=== PATIENT | male | born 1985 | race African-American/Black ===

== ENCOUNTER 2019-07-22 21:49 | Inpatient (IN) | payer BC ==
[~2019-07-22] VITALS: Ht 177.8 cm; Wt 107.5 kg
[2019-07-22 22:00] VITALS: Ht 177.8 cm; Wt 107.5 kg
--- NOTE | 2019-07-22 22:04 | NUR ---
PT C/O SOB, CHEST PAIN, WEAKNESS, DIZZINESS [id number] INLAYER SILVER. PER PT, HE WAS JUST WATCHING TV WHEN HE STARTED TO FEEL 10/10 HEAVY PRESSURE ON HIS CHEST, CAUSING SOB. BREATH SOUNDS CLEAR THROUGHOUT, ADEQUATE CHEST RISE AND FALL NOTED. LABORED BREATHING AND TACHYPNEA NOTED. NO OTHER S/S OF RESP DISTRESS NOTED. PT REPORTS NUMBNESS "ALL OVER." PT PLACED ON ELECTRICAL TECH AND SPO2 MONITOR. MD AT BEDSIDE FOR MSE. WILL CONTINUE TO MONITOR.
[2019-07-22 22:27] LABS: BASOPHIL % 0.6 % (0-2); PLATELET COUNT 211 x10^3mcL (130-400); RED CELL DISTRIBUTION WIDTH 12.8 % (11.5-14.5)
[2019-07-22 22:34] LABS: CALCIUM 9.3 mg/dL (8.5-10.1); CARBON DIOXIDE 23.8 mmol/L (21-32); CREATININE SERUM 1.5 mg/dL (0.7-1.3)
[2019-07-22 22:39] LABS: BILIRUBIN TOTAL 0.3 mg/dL (0.20-1.00); TOTAL PROTEIN, SERUM 7.5 g/dL (6.4-8.2)
--- NOTE | 2019-07-22 22:55 | NUR ---
RT AT BEDSIDE FOR BREATHING TX. PT AWAKE AND ALERT, LAYING IN POSITION OF COMFORT, HOB ELEVATED. PULSE AND RESPS NOTED TO BE WNL AT THIS TIME. SPOUSE AT BEDSIDE. NAD NOTED AT THIS TIME. WILL CONTINUE TO MONITOR.
--- NOTE | 2019-07-23 01:04 | NUR ---
PT RESTING IN BED COMFORTABLY. PT AROUSED, AND ALERT. PT REPORTS NO MORE CHEST DISCOMFORT AT THIS TIME. NO S/S OF RESP DISTRESS NOTED AT THIS TIME. NAD NOTED AT THIS TIME. WILL CONTINUE TO MONITOR.
--- NOTE | 2019-07-23 01:24 | NUR ---
PT RECEIVING BREATHING TREATMENT
--- NOTE | 2019-07-23 02:39 | NUR ---
REPORT GIVEN TO BK WADSWORTH TO ASSUME CARE OF PT
--- NOTE | 2019-07-23 02:51 | NUR ---
PATIENT ARRIVED FROM ED VIA [facility] ACCOMPANIED BY ED STAFF, NURSE, AND FIANCE. BELONGINGS AT BEDSIDE. A/OX4. ABLE TO MAKE NEEDS KNOWN, CLEAR AND APPROPIATE SPEECH. DENIES NAVARRO OR DIZZINESS, RADIAL AND PEDAL PULSES PALPABLE BILATERALLY. BREATHING EVEN AND UNLABORED ON ROOM AIR. NO SOB OR RESP DISTRESS NOTED. TELE #17 READING NSR @83. REPORTS 8/10 CHEST PRESSURE, BUT REPORTS IT'S TOLERABLE AT THIS TIME. "I CAN HANDLE A LOT OF PAIN". IV TO THE LAC, 20G. PATENT AND INTACT. NO REDNESS AND SWELLING NOTED. GENERALIZED WEAKNESS NOTED. PATIENT REPORTS HE IS AMBULATORY, BUT IS WEAK AT THIS TIME. ORIENTED PATIENT TO THE ROOM AND CALL LIGHT SYSTEM. COMFORT AND SAFETY MEASURES IN PLACE. BED IS LOCKED AND IN THE LOWEST POSITION. SIDE RAILS UP X2. EDUCATED PATIENT ON CARDIAC DIET. WILL CONTINUE TO MONITOR.
--- NOTE | 2019-07-23 03:25 | NUR ---
URINE COLLECTED FOR UA/UDS
[2019-07-23 03:32] VITALS: BP 119/62
[2019-07-23 03:59] LABS: microscopic required? NO
--- NOTE | 2019-07-23 04:10 | NUR ---
PATIENT HAD TO VOID. TRIED TO VOID IN URINAL, BUT VOIDED ON THE GROUND AND ON HIMSELF. CLEANED PATIENT WITH KAMLA AMOS. PLACED NEW GOWN ON PATIENT. NEW ARYA WRAPPED APPLIED TO RIGHT HEEL. PATIENT MADE COMFORTABLE IN BED. NO DISTRESS NOTED. IVF INFUSING WELL. NO C/O PAIN. CALL LIGHT IS WITHIN REACH. WILL CONTINUE TO MONITOR.
[2019-07-23 04:29] LABS: AMPHETAMINE QUAL UR NONE DETECTED (See below)
[2019-07-23 04:39] LABS: urine erythrocyte NEGATIVE (NEGATIVE)
--- NOTE | 2019-07-23 06:09 | NUR ---
RESTED IN INTERVALS THROUGHOUT THE NIGHT. NO ACUTE CHANGES NOTED. BREATHING EVEN AND UNLABORED ON ROOM AIR. NO SOB OR RESP DISTRESS NOTED. NO DISTRESS NOTED. C/O 7/10 CHEST PRESSURE. OFFERED PRN MORPHINE. PATIENT REFUSED AND STATES PAIN IS TOLERABLE AT THIS TIME AND DOES NOT WANT PAIN MED. IV TO THE LAC, 20G, INFUSING WELL. PATENT AND INTACT. NO REDNESS OR SWELLING NOTED. COMFORT AND SAFETY MEASURES IN PLACE. CALL LIGHT IS WITHIN REACH. WILL ENDORSE CARE TO DAY SHIFT RN.
[2019-07-23 06:32] VITALS: BP 119/66
--- NOTE | 2019-07-23 07:00 | NUR ---
RECIEVED PT RESTING IN BED WITH NO DISTRESS. PT REPORTS 4/10 CP BUT REFUSES ANY AND MEDICATION FOR THE PAIN. HE STATES THAT THE PAIN IS SUBSIDING. A/O X4 WITH NO NAVARRO OR DIZZINESS. TELE# 17 CONNECTED TO PT, NSR. NS 100ML/HR RUNNING IN LAC, IV INTACT AND PATENT, NO REDNESS OR INFLAMMATION NOTED. SAFETY PRECAUTIONS IN PLACE, CALL LIGHT WITHIN REACH, WILL MONITOR.
[2019-07-23 07:12] LABS: BASOPHIL % 0.4 % (0-2); PLATELET COUNT 156 x10^3mcL (130-400); RED CELL DISTRIBUTION WIDTH 12.7 % (11.5-14.5)
[2019-07-23 07:14] LABS: CALCIUM 8.1 mg/dL (8.5-10.1); CARBON DIOXIDE 24.4 mmol/L (21-32); CHLORIDE SERUM 110 mmol/L (98-107); CREATININE SERUM 1.2 mg/dL (0.7-1.3); GFR1 > 60 mL/min; GLUCOSE SERUM 120 mg/dL (74-106); MAGNESIUM 1.9 mg/dL (1.8-2.4); PHOSPHOROUS 3.9 mg/dL (2.5-4.9); POTASSIUM SERUM 3.8 mmol/L (3.5-5.1); SODIUM SERUM 143 mmol/L (136-145)
[2019-07-23 09:06] VITALS: BP 120/74
--- NOTE | 2019-07-23 09:24 | NUR ---
ECHOCARDIOGRAM COMPLETED.
[2019-07-23] MEDS ORDERED: ECO81 PO (09:55)
[2019-07-23] MEDS ORDERED: PRI20 PO (09:56)
[2019-07-23] MEDS ORDERED: LIDOCAINE PAIN1 EACH TD (09:58)
--- NOTE | 2019-07-23 10:00 | NUR ---
PT STABLE BUT STILL REPORTS CP OF 5/10 AND IS STILL REFUSING PAIN MEDICATION. SAFETY PRECAUTIONS IN PLACE, CALL LIGHT WITHIN REACH, WILL CONT TO MONITOR.
[2019-07-23 13:41] VITALS: BP 120/65
[2019-07-23 14:40] VITALS: BP 120/65
--- NOTE | 2019-07-23 15:28 | NUR ---
PT STABLE TO DISCHARGE PER MD ORDER. ALL CARES TOLERATED WELL, VS WNL. PT REPORTS NO MORE CP AND THAT HE THINKS IT WAS JUST INDIGESTION CAUSING THE PAIN. ALL DISCHARGE INSTRUCTIONS AND EDUCATION GIVEN TO PT AND HE VERBALIZES UNDERSTANDING. ALL FORMS SIGNED BY PT. NOTIFIED PT THAT HIS PRESCRIPTIONS WERE SENT ELECTRONICALLY TO THE PHARMACY PRINTED ON DISCHARGE PAPERWORK. IV REMOVED WITH CATHETER INTACT, NO REDNESS OR INFLAMMATION NOTED TO SITE. ID BAND REMOVED. PT ESCORTED DOWN TO LOBBY BY [employer] MACHINE OPERATOR AND FAMILY MEMBER. ALL PERSONAL BELONGINGS IN HAND.
== END 2019-07-23 15:29 | disposition home or self-care (01) | DRG 205 ==
LOC: ED 21:49 → DU 07-23 02:16
PROVIDERS: Emergency Medicine; ADMIT Family Medicine
DX: M94.0 Chondrocostal junction syndrome [Tietze] (principal); N17.0 Acute kidney failure with tubular necrosis; K21.9 Gastro-esophageal reflux disease without esophagitis; F12.90 Cannabis use, unspecified, uncomplicated; Z90.49 Acquired absence of other specified parts of digestive tract; Z79.899 Other long term (current) drug therapy
CPT/HCPCS: 85378; G0378; J1885; J2060; J7030; J7613; J7644; Q0092; Q9967

== ENCOUNTER 2019-07-30 11:32 | Emergency (ER) | payer BC ==
[~2019-07-30] VITALS: Ht 177.8 cm; Wt 106.8 kg
[~2019-07-30 11:32] MED LIST: ECO81 PO; LIDOCAINE PAIN1 EACH TD; PRI20 PO
[2019-07-30 11:40] VITALS: Ht 177.8 cm; Wt 106.8 kg
[2019-07-30 12:16] LABS: BASOPHIL % 0.4 % (0-2); PLATELET COUNT 213 x10^3mcL (130-400); RED CELL DISTRIBUTION WIDTH 12.5 % (11.5-14.5)
[2019-07-30 12:23] LABS: CALCIUM 9.3 mg/dL (8.5-10.1); CARBON DIOXIDE 27.4 mmol/L (21-32); CHLORIDE SERUM 106 mmol/L (98-107); CREATININE SERUM 1.3 mg/dL (0.7-1.3); GFR1 > 60 mL/min; GLUCOSE SERUM 92 mg/dL (74-106); POTASSIUM SERUM 4.2 mmol/L (3.5-5.1); SODIUM SERUM 141 mmol/L (136-145)
[2019-07-30 12:28] LABS: ALBUMIN 3.9 g/dL (3.4-5.0); ALKALINE PHOSPHATASE 78 U/L (46-116); ALT/SGPT 77 U/L (16-63); AST/SGOT 28 U/L (15-37); BILIRUBIN TOTAL 0.4 mg/dL (0.20-1.00); LIPASE 235 IU/L (73-393); TOTAL PROTEIN, SERUM 7.7 g/dL (6.4-8.2)
[2019-07-30 14:48] LABS: microscopic required? NO
[2019-07-30 15:02] LABS: urine erythrocyte NEGATIVE (NEGATIVE)
[2019-07-30 15:46] LABS: AMPHETAMINE QUAL UR NONE DETECTED (See below)
[2019-07-30 17:14] VITALS: BP 114/68
== END 2019-07-30 17:14 | disposition home or self-care (01) ==
LOC: ED 11:32
PROVIDERS: Emergency Medicine
DX: R10.30 Lower abdominal pain, unspecified (principal); R07.89 Other chest pain
CPT/HCPCS: J1885; J2405; J7030; Q0092

== ENCOUNTER 2019-09-13 13:18 | Emergency (ER) | payer BC ==
[2019-09-13 14:45] LABS: BASOPHIL % 0.4 % (0-2); PLATELET COUNT 212 x10^3mcL (130-400); RED CELL DISTRIBUTION WIDTH 12.7 % (11.5-14.5)
[2019-09-13 14:52] LABS: CALCIUM 9.3 mg/dL (8.5-10.1); CARBON DIOXIDE 28.4 mmol/L (21-32); CHLORIDE SERUM 104 mmol/L (98-107); CREATININE SERUM 1.2 mg/dL (0.7-1.3); GFR1 > 60 mL/min; GLUCOSE SERUM 89 mg/dL (74-106); POTASSIUM SERUM 4.3 mmol/L (3.5-5.1); SODIUM SERUM 141 mmol/L (136-145)
[2019-09-13 16:49] VITALS: BP 116/72
== END 2019-09-13 16:49 | disposition home or self-care (01) ==
LOC: ED 13:18
PROVIDERS: Emergency Medicine
DX: K29.70 Gastritis, unspecified, without bleeding (principal); R07.89 Other chest pain; Z98.890 Other specified postprocedural states
CPT/HCPCS: 36415; J1885; Q0092

== ENCOUNTER 2019-09-26 14:18 | Inpatient (IN) | payer BC ==
[~2019-09-26] VITALS: Ht 180.3 cm; Wt 106.1 kg
[2019-09-26 14:25] VITALS: Ht 180.3 cm; Wt 106.1 kg
[2019-09-26 15:10] LABS: BASOPHIL % 0.6 % (0-2); PLATELET COUNT 218 x10^3mcL (130-400); RED CELL DISTRIBUTION WIDTH 12.4 % (11.5-14.5)
[2019-09-26 15:23] LABS: CALCIUM 9.2 mg/dL (8.5-10.1); CARBON DIOXIDE 28.5 mmol/L (21-32); CHLORIDE SERUM 105 mmol/L (98-107); CREATININE SERUM 1.3 mg/dL (0.7-1.3); GFR1 > 60 mL/min; GLUCOSE SERUM 99 mg/dL (74-106); POTASSIUM SERUM 3.9 mmol/L (3.5-5.1); SODIUM SERUM 141 mmol/L (136-145)
[2019-09-26 15:28] LABS: ALBUMIN 3.7 g/dL (3.4-5.0); ALKALINE PHOSPHATASE 78 U/L (46-116); ALT/SGPT 57 U/L (16-63); AST/SGOT 23 U/L (15-37); BILIRUBIN TOTAL 0.36 mg/dL (0.20-1.00); LIPASE 166 IU/L (73-393); TOTAL PROTEIN, SERUM 7.6 g/dL (6.4-8.2)
[2019-09-26 16:45] LABS: AMPHETAMINE QUAL UR NONE DETECTED (See below)
[2019-09-26 17:39] LABS: microscopic required? NO
[2019-09-26 17:48] LABS: urine erythrocyte NEGATIVE (NEGATIVE)
[2019-09-26 18:39] VITALS: BP 115/73
[2019-09-27 06:58] VITALS: BP 125/70
[2019-09-27 08:53] VITALS: BP 135/73
[2019-09-27 11:37] VITALS: BP 131/79
[2019-09-27] MEDS ORDERED: NEXIUM20 MG PO (15:01)
[2019-09-27 16:24] VITALS: BP 136/72
== END 2019-09-27 19:03 | disposition home or self-care (01) | DRG 392 ==
LOC: ED 14:18 → DU 17:22
PROVIDERS: Emergency Medicine; ADMIT Internal Medicine
DX: K21.9 Gastro-esophageal reflux disease without esophagitis (principal); F12.90 Cannabis use, unspecified, uncomplicated; Z90.49 Acquired absence of other specified parts of digestive tract; Z72.89 Other problems related to lifestyle
CPT/HCPCS: 83880; C9113; G0378; J7030

== ENCOUNTER 2020-01-23 22:39 | Emergency (ER) | payer BC ==
[~2020-01-23] VITALS: Ht 177.8 cm; Wt 114.3 kg
[~2020-01-23 22:39] MED LIST changes: +NEXIUM20 MG PO
[2020-01-23 22:44] VITALS: Ht 177.8 cm; Wt 114.3 kg
[2020-01-23 23:21] LABS: BASOPHIL % 0.7 % (0-2); PLATELET COUNT 237 x10^3mcL (130-400); RED CELL DISTRIBUTION WIDTH 12.8 % (11.5-14.5)
[2020-01-23 23:29] LABS: CALCIUM 9.5 mg/dL (8.5-10.1); CARBON DIOXIDE 26.2 mmol/L (21-32); CHLORIDE SERUM 104 mmol/L (98-107); CREATININE SERUM 1.3 mg/dL (0.7-1.3); GFR1 > 60 mL/min; GLUCOSE SERUM 104 mg/dL (74-106); SODIUM SERUM 140 mmol/L (136-145)
[2020-01-23 23:35] LABS: ALBUMIN 3.7 g/dL (3.4-5.0); ALKALINE PHOSPHATASE 69 U/L (46-116); ALT/SGPT 80 U/L (16-63); AST/SGOT 40 U/L (15-37); BILIRUBIN TOTAL 0.3 mg/dL (0.20-1.00); TOTAL PROTEIN, SERUM 7.6 g/dL (6.4-8.2)
[2020-01-24 01:26] VITALS: BP 127/83
== END 2020-01-24 01:26 | disposition home or self-care (01) ==
LOC: ED 22:39
PROVIDERS: Emergency Medicine
DX: R51 Headache (principal); R53.81 Other malaise; Z90.89 Acquired absence of other organs; M54.2 Cervicalgia; R55 Syncope and collapse; R53.1 Weakness
CPT/HCPCS: J1200; J1885; J2765